=== PATIENT | male | born 1940 | race Caucasian/White ===

== ENCOUNTER → 2018-04-13 | Outpatient (CLI) | payer MEDICARE ==
--- NOTE | 2018-04-13 10:28 | REP ---
CHEST, TWO VIEWS: Two views of the chest performed and compared to a prior study of 09/21/2004. Calcified granulomas are again seen in the lung bases with mild chronic fibrotic change which remains stable. There is no evidence of acute infiltrate. The heart is normal in size. Mediastinal silhouette is unchanged. There are calcified hilar and mediastinal lymph nodes present. There is osteopenia. IMPRESSION: Stable chronic findings without acute infiltrate. Electronically Signed by Christian Varela MD 04/13/2018 05:01 P
== END ==
LOC: M LRY 09:51
PROVIDERS: ATTEND Physician Assistant
DX: M85.88 Other specified disorders of bone density and structure, other site (principal); R06.2 Wheezing
CPT/HCPCS: 71046; 87804; 94640; G0463; J7613; J7644

== ENCOUNTER → 2018-05-17 | Outpatient (CLI) | payer MEDICARE ==
--- NOTE | 2018-05-17 11:12 | REP ---
PA and lateral chest: Comparison is 2018. The lung ovalle appear hyperinflated, as previously. There are no acute infiltrates or pleural effusions. There are stable granulomas in the lung bases, unchanged. Cardiac size is normal. The oscar, mediastinum, skeletal structures are unremarkable. Impression: There are no acute cardiopulmonary findings. There are stable granulomas in the lung bases. Electronically Signed by Christian Delatorre MD 05/17/2018 11:03 A
== END ==
LOC: M LRY 10:29
PROVIDERS: ATTEND Nurse Practitioner Family
DX: J84.10 Pulmonary fibrosis, unspecified (principal); R06.02 Shortness of breath
CPT/HCPCS: 71046; 87804; 93005; 94640; G0463; J2930; J7613; J7644

== ENCOUNTER → 2019-09-27 | Outpatient (REF) | payer MEDICARE | LOC: M LAB REF 11:00 | PROVIDERS: ATTEND Internal Medicine Endocrinology, Diabetes & Metabolism | DX: E04.2 Nontoxic multinodular goiter (principal) ==

== ENCOUNTER 2022-08-06 15:00 | Inpatient (IN) | payer MEDICARE ==
[~2022-08-06] VITALS: Ht 177.8 cm; Wt 92.4 kg
[~2022-08-06 15:00] MED LIST: DILT1CAP46; ECOT81TA5 PO; FINA5TAB2 PO; LOSA100T5; METF500T13; METO50TA7; OMEP40CA5 PO; TAMS1CAP17; TRAD5TAB PO
[2022-08-06] MEDS ORDERED: MED REC IN PROGRESS XX SCH (16:35)
[2022-08-06 16:38] LABS: BASO # 0.1 10^3/uL (0.0-0.2); BASO % 0.4 % (0.0-1.0); EOS # 0.4 10^3/uL (0.0-0.5); EOS % 2.1 % (0.0-3.0); HEMATOCRIT 43.3 % (42.0-52.0); HEMOGLOBIN 13.6 g/dl (13.5-17.5); LYMPH # 1.2 10^3/uL (1.5-5.0); LYMPH % 6.2 % (24.0-44.0); MEAN CORPUSCULAR HEMOGLOBIN 28.8 pg (27.0-33.0); MEAN CORPUSCULAR HGB CONC 31.4 g/dl (32.0-36.5); MEAN CORPUSCULAR VOLUME 91.7 fl (80.0-96.0); MONO % 8.2 % (2.0-8.0); PLATELET COUNT, AUTOMATED 269 10^3/uL (150-450); RED BLOOD COUNT 4.72 10^6/uL (4.30-6.10); WHITE BLOOD COUNT 19.5 10^3/uL (4.0-10.0)
[2022-08-06 16:52] LABS: MONO # 1.6 10^3/uL (0.0-0.8)
[2022-08-06 16:57] LABS: BLOOD UREA NITROGEN 32 MG/DL (9-23); CALCIUM LEVEL 9.2 MG/DL (8.3-10.6); CARBON DIOXIDE LEVEL 28 MMOL/L (20-31); CHLORIDE LEVEL 105 MMOL/L (98-107); CREATININE FOR GFR 1.62 MG/DL (0.70-1.30); GLOMERULAR FILTRATION RATE 43.9 (>35); GLUCOSE, FASTING 96 MG/DL (74-106); POTASSIUM SERUM 4.6 MMOL/L (3.5-5.1); SODIUM LEVEL 141 MMOL/L (136-145)
[2022-08-06] MEDS ORDERED: DILT180C38 PO (17:07)
[2022-08-06] MEDS ORDERED: ALBU8.5H PO (17:24)
[2022-08-06] MEDS ORDERED: AMLO1TAB24 PO (17:24)
[2022-08-06] MEDS ORDERED: VERI5TAB PO (17:24)
[2022-08-06] MEDS ORDERED: AMIO200T49 PO (17:24)
[2022-08-06] MEDS ORDERED: FURO40TA2 PO (17:24)
[2022-08-06] MEDS ORDERED: ELIQ2.5T PO (17:24)
[2022-08-06] MEDS ORDERED: SYMB16INH PO (17:24)
[2022-08-06] MEDS ORDERED: HOME MED LIST COMPLETE! XX SCH (17:30)
[2022-08-06] MEDS ORDERED: ALBUTEROL 90 MCG/ACT 8GM HFA INHALER INH PRN (19:55)
[2022-08-06] MEDS: dilTIAZem **CD** 180MG CAP PO SCH (20:22)
[2022-08-06] MEDS: NS 1,000 ML IV SCH ×2 (20:22→22:01)
[2022-08-06] MEDS: ASPIRIN 81MG ENTERIC TABLET PO SCH (20:23)
[2022-08-06] MEDS: ATORVASTATIN 20 MG TAB PO SCH (20:23)
[2022-08-06 20:45] LABS: ERYTHROCYTE SEDIMENTATION RATE 36 mm/hr (0-20)
[2022-08-06 20:57] LABS: CK-MB VALUE MASS 1.7 NG/ML (<3.6)
[2022-08-06 20:58] LABS: HEMOGLOBIN A1c 5.9 % (4.0-6.0)
[2022-08-06 20:58] LABS: ALBUMIN 3.6 G/DL (3.2-5.2); ALKALINE PHOSPHATASE 98 U/L (46-116); ALT/SGPT 15 U/L (7.0-40); AST/SGOT < 8 U/L (<34); BILIRUBIN,DIRECT 0.1 MG/DL (<0.4); BILIRUBIN,TOTAL 0.5 MG/DL (0.3-1.2); CHOLESTEROL LEVEL 240 MG/DL (<200); CHOLESTEROL RISK RATIO 4.27 (<5); HDL CHOLESTEROL 56.1 MG/DL (>40); LDL CHOLESTEROL 141.7 MG/DL (<100); NON-HDL-C 183.9 MG/DL; TOTAL PROTEIN 6.4 G/DL (5.7-8.2); TRIGLYCERIDES LEVEL 211 MG/DL (<150)
[2022-08-06 21:00] LABS: THYROID STIMULATING HORMONE 0.782 uIU/ML (0.55-4.78)
[2022-08-06] MEDS ORDERED: amLODIPine 5 MG TAB PO SCH (21:00)
[2022-08-06 21:03] LABS: PARTIAL THROMBOPLASTIN TIME 27.9 SECONDS (24.8-34.2)
[2022-08-06 21:06] LABS: INR 0.88; PROTHROMBIN TIME 12.1 SECONDS (12.5-14.5)
[2022-08-06 21:09] LABS: CPK CREATINE PHOSPHOKINASE 76 U/L (46-171); MB/CK RELATIVE INDEX 2.23 (< OR =4)
[2022-08-06 21:15] VITALS: BP 144/79; TEMP 98.1; O2SAT 97
[2022-08-06 21:45] VITALS: BP 144/77; TEMP 98; O2SAT 97
[2022-08-06] MEDS: APIXABAN 2.5 MG TAB (ELIQUIS) PO SCH (22:00)
[2022-08-06 23:36] VITALS: BP 144/74; TEMP 97.4; O2SAT 91
[2022-08-07] VITALS (9 sets, daily range): BP systolic 119–154; BP diastolic 57–83; TEMP 97.1–98; O2SAT 92–97
[2022-08-07] MEDS: SYMBICORT 160/4.5MCG INHALER 6GM INH SCH ×2 (08:14→19:21)
[2022-08-07] MEDS: ASPIRIN 81MG ENTERIC TABLET PO SCH (08:20)
[2022-08-07] MEDS: AMIODARONE 200 MG TAB (PACERONE) PO SCH (08:20)
[2022-08-07] MEDS: APIXABAN 2.5 MG TAB (ELIQUIS) PO SCH ×2 (08:20→21:00)
[2022-08-07] MEDS: FINASTERIDE 5MG TAB PO SCH (08:21)
[2022-08-07] MEDS: OMEPRAZOLE 20MG CAP PO SCH (08:21)
[2022-08-07 08:31] LABS: BASO # 0.1 10^3/uL (0.0-0.2); BASO % 0.6 % (0.0-1.0); EOS # 0.5 10^3/uL (0.0-0.5); EOS % 3.5 % (0.0-3.0); HEMATOCRIT 42.8 % (42.0-52.0); HEMOGLOBIN 13.4 g/dl (13.5-17.5); LYMPH # 1.1 10^3/uL (1.5-5.0); MEAN CORPUSCULAR HEMOGLOBIN 29.2 pg (27.0-33.0); MEAN CORPUSCULAR HGB CONC 31.3 g/dl (32.0-36.5); MEAN CORPUSCULAR VOLUME 93.2 fl (80.0-96.0); MONO # 1.4 10^3/uL (0.0-0.8); MONO % 8.9 % (2.0-8.0); NEUTROPHILS # 12.3 10^3/uL (1.5-8.5); NEUTROPHILS % 79.2 % (36.0-66.0); PLATELET COUNT, AUTOMATED 252 10^3/uL (150-450); RED BLOOD COUNT 4.59 10^6/uL (4.30-6.10); WHITE BLOOD COUNT 15.6 10^3/uL (4.0-10.0)
[2022-08-07] MEDS ORDERED: APIXABAN 2.5 MG TAB (ELIQUIS) PO SCH (09:00)
[2022-08-07 09:01] LABS: CALCIUM LEVEL 8.9 MG/DL (8.3-10.6); CREATININE FOR GFR 1.35 MG/DL (0.70-1.30); GLOMERULAR FILTRATION RATE 54.1 (>35); POTASSIUM SERUM 4.4 MMOL/L (3.5-5.1)
[2022-08-07] MEDS: dilTIAZem **CD** 180MG CAP PO SCH (21:00)
[2022-08-07] MEDS: ATORVASTATIN 20 MG TAB PO SCH (21:00)
[2022-08-08 04:22] VITALS: BP 113/59; TEMP 97.4; O2SAT 95
[2022-08-08] MEDS: OMEPRAZOLE 20MG CAP PO SCH (07:53)
[2022-08-08] MEDS: AMIODARONE 200 MG TAB (PACERONE) PO SCH (07:53)
[2022-08-08] MEDS: APIXABAN 2.5 MG TAB (ELIQUIS) PO SCH (07:53)
[2022-08-08] MEDS: ASPIRIN 81MG ENTERIC TABLET PO SCH (07:53)
[2022-08-08] MEDS: FINASTERIDE 5MG TAB PO SCH (07:53)
[2022-08-08] MEDS: SYMBICORT 160/4.5MCG INHALER 6GM INH SCH (07:56)
[2022-08-08 08:00] VITALS: BP 139/66; TEMP 97.5; O2SAT 97
[2022-08-08] MEDS ORDERED: ASPI81TAEC PO (08:01)
[2022-08-08] MEDS ORDERED: ELIQ2.5T PO (08:01)
[2022-08-08] MEDS ORDERED: ATOR80TA59 PO (08:01)
[2022-08-08] MEDS ORDERED: APIXABAN 5 MG TAB (ELIQUIS) PO SCH (21:00)
== END 2022-08-08 10:48 | disposition home health service (06) | DRG 65 ==
LOC: M ED 15:00 → M ED INP 19:51 → ENRESERV 20:43 → M PCU 21:36
PROVIDERS: ADMIT Internal Medicine; ATTEND Internal Medicine Nephrology
PROC: B246ZZZ Ultrasonography of Right and Left Heart (ICD-10-PCS; principal; 2022-08-07)
DX: I63.512 Cerebral infarction due to unspecified occlusion or stenosis of left middle cerebral artery (principal); G81.91 Hemiplegia, unspecified affecting right dominant side; N17.9 Acute kidney failure, unspecified; I13.0 Hypertensive heart and chronic kidney disease with heart failure and stage 1 through stage 4 chronic kidney disease, or unspecified chronic kidney disease; I50.32 Chronic diastolic (congestive) heart failure; J44.9 Chronic obstructive pulmonary disease, unspecified; K21.9 Gastro-esophageal reflux disease without esophagitis; I48.0 Paroxysmal atrial fibrillation; D72.0 Genetic anomalies of leukocytes; E11.22 Type 2 diabetes mellitus with diabetic chronic kidney disease; F17.200 Nicotine dependence, unspecified, uncomplicated; N18.30 Chronic kidney disease, stage 3 unspecified; D72.829 Elevated white blood cell count, unspecified; E66.9 Obesity, unspecified; H91.93 Unspecified hearing loss, bilateral; Z79.01 Long term (current) use of anticoagulants; Z79.899 Other long term (current) drug therapy; Z88.0 Allergy status to penicillin; Z68.30 Body mass index [BMI] 30.0-30.9, adult

== ENCOUNTER 2022-10-03 12:43 | Inpatient (IN) | payer MEDICARE ==
[~2022-10-03] VITALS: Ht 165.1 cm; Wt 97.4 kg
[~2022-10-03 12:43] MED LIST changes: +ALBU8.5H PO; +AMIO200T49 PO; +AMLO1TAB24 PO; +ASPI81TAEC PO; +ATOR80TA59 PO; +DILT180C38 PO; +ELIQ2.5T PO; +FURO40TA2 PO; +SYMB16INH PO; +VERI5TAB PO
[2022-10-03] MEDS ORDERED: GABA-1171 (13:30)
[2022-10-03] MEDS ORDERED: FURO20TA2 PO (13:30)
[2022-10-03 13:41] LABS: BASO # 0.1 10^3/uL (0.0-0.2); BASO % 0.4 % (0.0-1.0); EOS # 0.4 10^3/uL (0.0-0.5); EOS % 2.2 % (0.0-3.0); HEMATOCRIT 36.5 % (42.0-52.0); HEMOGLOBIN 11.3 g/dl (13.5-17.5); LYMPH # 1.1 10^3/uL (1.5-5.0); MEAN CORPUSCULAR HEMOGLOBIN 29.6 pg (27.0-33.0); MEAN CORPUSCULAR VOLUME 95.5 fl (80.0-96.0); MONO # 1.2 10^3/uL (0.0-0.8); MONO % 7.5 % (2.0-8.0); NEUTROPHILS # 12.8 10^3/uL (1.5-8.5); NEUTROPHILS % 82.3 % (36.0-66.0); PLATELET COUNT, AUTOMATED 187 10^3/uL (150-450); RED BLOOD COUNT 3.82 10^6/uL (4.30-6.10); WHITE BLOOD COUNT 15.6 10^3/uL (4.0-10.0)
[2022-10-03 14:05] LABS: ETHYL ALCOHOL (ETHANOL) < 0.003 % (0.000-0.010)
[2022-10-03 14:06] LABS: ACETAMINOPHEN LEVEL < 2.0 UG/ML (10.0-20.0)
[2022-10-03 14:07] LABS: ALBUMIN 3.1 G/DL (3.2-5.2); ALKALINE PHOSPHATASE 92 U/L (46-116); ALT/SGPT 12 U/L (7.0-40); AST/SGOT < 8 U/L (<34); BILIRUBIN,DIRECT 0.3 MG/DL (<0.4); BILIRUBIN,TOTAL 0.6 MG/DL (0.3-1.2); BLOOD UREA NITROGEN 24 MG/DL (9-23); CALCIUM LEVEL 8.4 MG/DL (8.3-10.6); CARBON DIOXIDE LEVEL 26 MMOL/L (20-31); CHLORIDE LEVEL 109 MMOL/L (98-107); CREATININE FOR GFR 1.54 MG/DL (0.70-1.30); GLOMERULAR FILTRATION RATE 46.5 (>35); GLUCOSE, FASTING 91 MG/DL (74-106); POTASSIUM SERUM 4.5 MMOL/L (3.5-5.1); SALICYLATE LEVEL < 3.0 MG/DL (<30); SODIUM LEVEL 142 MMOL/L (136-145); TOTAL PROTEIN 5.6 G/DL (5.7-8.2)
[2022-10-03 14:26] LABS: RSV AMPLIFICATION NEGATIVE (NEGATIVE)
[2022-10-03] MEDS ORDERED: ACETAMINOPHEN TAB 650MG DOSE (2X325MG) PO PRN (16:45)
[2022-10-03] MEDS ORDERED: B-12100010 PO (17:06)
[2022-10-03] MEDS ORDERED: HYDR-3910 PO (17:06)
[2022-10-03] MEDS ORDERED: GABA-1171 PO (17:06)
[2022-10-03] MEDS ORDERED: ASPI81TA26 PO (17:06)
[2022-10-03] MEDS ORDERED: ELIQ2.5T PO (17:06)
[2022-10-03] MEDS ORDERED: GLUCAGON INJ 1MG VIAL SC PRN (17:10)
[2022-10-03] MEDS ORDERED: DEXTROSE 50% 50ML SYRINGE IV PRN (17:10)
[2022-10-03] MEDS ORDERED: HOME MED LIST COMPLETE! XX SCH (17:10)
[2022-10-03] MEDS ORDERED: GLUCOSE 4GM CHEW TABLET PO PRN (17:10)
[2022-10-03] MEDS ORDERED: ALBUTEROL 90 MCG/ACT 8GM HFA INHALER INH PRN (17:20)
[2022-10-03 18:50] LABS: CK-MB VALUE MASS 1.1 NG/ML (<3.6)
[2022-10-03 18:52] LABS: MB/CK RELATIVE INDEX 1.48 (< OR =4)
[2022-10-03 18:59] LABS: INR 1.05; PROTHROMBIN TIME 13.4 SECONDS (12.5-14.5)
[2022-10-03 19:00] LABS: PARTIAL THROMBOPLASTIN TIME 27.8 SECONDS (24.8-34.2)
[2022-10-03] MEDS: SYMBICORT 160/4.5MCG INHALER 6GM INH SCH (19:51)
[2022-10-03] MEDS ORDERED: dilTIAZem **CD** 180MG CAP PO SCH (21:00)
[2022-10-03] MEDS ORDERED: AMIODARONE 200 MG TAB (PACERONE) PO SCH (21:00)
[2022-10-03] MEDS ORDERED: **hydrALAZINE HCL** 25 MG TAB PO SCH (21:00)
[2022-10-03] MEDS ORDERED: APIXABAN 2.5 MG TAB (ELIQUIS) PO SCH (21:00)
[2022-10-03 21:34] VITALS: BP 175/76; TEMP 98.6; O2SAT 95
[2022-10-03] MEDS: INSULIN LISPRO (NovoLOG) PER UNIT SC SCH (21:51)
[2022-10-03] MEDS: GABAPENTIN 100 MG CAP PO SCH (21:52)
[2022-10-03] MEDS: ATORVASTATIN 20 MG TAB PO SCH (21:52)
[2022-10-03 21:54] VITALS: BP 175/76
[2022-10-03 23:02] VITALS: BP 141/63; TEMP 98.6; O2SAT 93
[2022-10-03 23:40] VITALS: BP 141/70; TEMP 98.2; O2SAT 92
[2022-10-04 04:35] VITALS: BP 108/54; TEMP 99.1; O2SAT 94
[2022-10-04 06:39] LABS: HEMATOCRIT 34.2 % (42.0-52.0); HEMOGLOBIN 10.3 g/dl (13.5-17.5); MEAN CORPUSCULAR HEMOGLOBIN 28.6 pg (27.0-33.0); MEAN CORPUSCULAR HGB CONC 30.1 g/dl (32.0-36.5); PLATELET COUNT, AUTOMATED 202 10^3/uL (150-450); WHITE BLOOD COUNT 12.7 10^3/uL (4.0-10.0)
[2022-10-04 07:12] LABS: ALBUMIN 2.6 G/DL (3.2-5.2); ALKALINE PHOSPHATASE 80 U/L (46-116); ALT/SGPT 10 U/L (7.0-40); AST/SGOT < 8 U/L (<34); BILIRUBIN,TOTAL 0.8 MG/DL (0.3-1.2); BLOOD UREA NITROGEN 20 MG/DL (9-23); CARBON DIOXIDE LEVEL 28 MMOL/L (20-31); CHLORIDE LEVEL 109 MMOL/L (98-107); GLOMERULAR FILTRATION RATE 47.9 (>35); GLUCOSE, FASTING 91 MG/DL (74-106); POTASSIUM SERUM 4.5 MMOL/L (3.5-5.1); SODIUM LEVEL 141 MMOL/L (136-145); TOTAL PROTEIN 4.8 G/DL (5.7-8.2)
[2022-10-04] MEDS: INSULIN LISPRO (NovoLOG) PER UNIT SC SCH ×3 (07:30→17:43)
[2022-10-04] MEDS: SYMBICORT 160/4.5MCG INHALER 6GM INH SCH ×2 (07:37→20:00)
[2022-10-04 08:00] VITALS: BP 142/67; TEMP 97.3; O2SAT 96
[2022-10-04] MEDS: CYANOCOBALAMIN 500 MCG TAB PO SCH (08:19)
[2022-10-04] MEDS: OMEPRAZOLE 20MG CAP PO SCH (08:19)
[2022-10-04] MEDS: ASPIRIN 81MG ENTERIC TABLET PO SCH (08:19)
[2022-10-04] MEDS: FINASTERIDE 5MG TAB PO SCH (08:19)
[2022-10-04] MEDS: GABAPENTIN 100 MG CAP PO SCH ×2 (08:21→21:20)
[2022-10-04] MEDS ORDERED: FUROSEMIDE 20 MG TAB PO SCH (09:00)
[2022-10-04 12:46] VITALS: BP 129/62; TEMP 97.4; O2SAT 96
[2022-10-04 15:32] VITALS: BP 130/62; TEMP 97.4; O2SAT 94
[2022-10-04] MEDS: APIXABAN 2.5 MG TAB (ELIQUIS) PO SCH (21:19)
[2022-10-04] MEDS: ATORVASTATIN 20 MG TAB PO SCH (21:19)
[2022-10-04 21:51] VITALS: BP 137/65; TEMP 97.3; O2SAT 94
[2022-10-05 00:03] VITALS: BP 137/63; TEMP 97.8; O2SAT 93
[2022-10-05 04:11] VITALS: BP 147/67; TEMP 97.2; O2SAT 92
[2022-10-05 06:38] LABS: HEMATOCRIT 33.7 % (42.0-52.0); HEMOGLOBIN 10.3 g/dl (13.5-17.5); MEAN CORPUSCULAR HEMOGLOBIN 29.2 pg (27.0-33.0); MEAN CORPUSCULAR HGB CONC 30.6 g/dl (32.0-36.5); MEAN CORPUSCULAR VOLUME 95.5 fl (80.0-96.0); PLATELET COUNT, AUTOMATED 199 10^3/uL (150-450); RED BLOOD COUNT 3.53 10^6/uL (4.30-6.10); WHITE BLOOD COUNT 11.5 10^3/uL (4.0-10.0)
[2022-10-05 07:02] LABS: ALBUMIN 2.7 G/DL (3.2-5.2); ALKALINE PHOSPHATASE 84 U/L (46-116); ALT/SGPT 11 U/L (7.0-40); AST/SGOT < 8 U/L (<34); BILIRUBIN,TOTAL 0.6 MG/DL (0.3-1.2); BLOOD UREA NITROGEN 21 MG/DL (9-23); CALCIUM LEVEL 8.2 MG/DL (8.3-10.6); CARBON DIOXIDE LEVEL 26 MMOL/L (20-31); CHLORIDE LEVEL 109 MMOL/L (98-107); CREATININE FOR GFR 1.51 MG/DL (0.70-1.30); GLOMERULAR FILTRATION RATE 47.6 (>35); GLUCOSE, FASTING 95 MG/DL (74-106); POTASSIUM SERUM 4.5 MMOL/L (3.5-5.1); SODIUM LEVEL 144 MMOL/L (136-145)
[2022-10-05] MEDS: INSULIN LISPRO (NovoLOG) PER UNIT SC SCH ×3 (07:30→18:25)
[2022-10-05 07:44] VITALS: BP 152/68; TEMP 98.2; O2SAT 91
[2022-10-05] MEDS: SYMBICORT 160/4.5MCG INHALER 6GM INH SCH ×2 (08:45→19:37)
[2022-10-05] MEDS ORDERED: PARoxetine 10MG TABLET PO SCH (09:00)
[2022-10-05] MEDS: APIXABAN 2.5 MG TAB (ELIQUIS) PO SCH (10:02)
[2022-10-05] MEDS: OMEPRAZOLE 20MG CAP PO SCH (10:02)
[2022-10-05] MEDS: ASPIRIN 81MG ENTERIC TABLET PO SCH (10:03)
[2022-10-05] MEDS: FINASTERIDE 5MG TAB PO SCH (10:03)
[2022-10-05] MEDS: CYANOCOBALAMIN 500 MCG TAB PO SCH (10:03)
[2022-10-05] MEDS: GABAPENTIN 100 MG CAP PO SCH ×2 (10:04→20:52)
[2022-10-05 12:45] VITALS: BP 176/99; TEMP 98.5; O2SAT 92
[2022-10-05] MEDS ORDERED: RIVAROXABAN 15MG TAB (XARELTO) PO SCH (18:00)
[2022-10-05 19:54] VITALS: BP 148/71; TEMP 98.4; O2SAT 90
[2022-10-05] MEDS: ATORVASTATIN 20 MG TAB PO SCH (20:52)
[2022-10-06 04:28] VITALS: BP 131/67; TEMP 97.7; O2SAT 91
[2022-10-06 07:27] VITALS: BP 159/79; TEMP 98; O2SAT 90
[2022-10-06] MEDS: SYMBICORT 160/4.5MCG INHALER 6GM INH SCH (07:44)
[2022-10-06] MEDS: INSULIN LISPRO (NovoLOG) PER UNIT SC SCH ×2 (07:58→11:58)
[2022-10-06] MEDS: CYANOCOBALAMIN 500 MCG TAB PO SCH (07:58)
[2022-10-06] MEDS: ASPIRIN 81MG ENTERIC TABLET PO SCH (07:58)
[2022-10-06] MEDS: FINASTERIDE 5MG TAB PO SCH (07:59)
[2022-10-06] MEDS: GABAPENTIN 100 MG CAP PO SCH (07:59)
[2022-10-06] MEDS: OMEPRAZOLE 20MG CAP PO SCH (07:59)
[2022-10-06] MEDS ORDERED: FLUoxetine 20MG CAP PO SCH (09:00)
[2022-10-06] MEDS ORDERED: dilTIAZem **CD** 180MG CAP PO SCH (09:00)
[2022-10-06] MEDS ORDERED: ATOR80TA59 PO (12:19)
[2022-10-06] MEDS ORDERED: FLUO20CA22 PO (12:19)
[2022-10-06] MEDS ORDERED: XARE15TA PO (12:19)
[2022-10-06] MEDS ORDERED: FINA5TAB2 PO (12:19)
[2022-10-07] MEDS ORDERED: FINASTERIDE 5MG TAB PO SCH (21:00)
== END 2022-10-06 14:53 | disposition home or self-care (01) | DRG 65 ==
LOC: EDBD 12:43 → M ED 12:43 → M ED INP 12:44 → M MSPAV 21:34 → M PCU 23:38 → OBSVTOIN 10-04 18:20
PROVIDERS: ADMIT Internal Medicine; ATTEND Internal Medicine Nephrology
PROC: B246ZZZ Ultrasonography of Right and Left Heart (ICD-10-PCS; principal; 2022-10-04)
DX: I63.412 Cerebral infarction due to embolism of left middle cerebral artery (principal); I50.32 Chronic diastolic (congestive) heart failure; I13.0 Hypertensive heart and chronic kidney disease with heart failure and stage 1 through stage 4 chronic kidney disease, or unspecified chronic kidney disease; I69.351 Hemiplegia and hemiparesis following cerebral infarction affecting right dominant side; I48.0 Paroxysmal atrial fibrillation; J44.9 Chronic obstructive pulmonary disease, unspecified; E11.22 Type 2 diabetes mellitus with diabetic chronic kidney disease; K21.9 Gastro-esophageal reflux disease without esophagitis; Z66 Do not resuscitate; N18.30 Chronic kidney disease, stage 3 unspecified; D72.829 Elevated white blood cell count, unspecified; H91.93 Unspecified hearing loss, bilateral; R26.89 Other abnormalities of gait and mobility; R35.0 Frequency of micturition; F17.200 Nicotine dependence, unspecified, uncomplicated; F32.A Depression, unspecified; E66.9 Obesity, unspecified; I69.398 Other sequelae of cerebral infarction; E04.1 Nontoxic single thyroid nodule; Z79.01 Long term (current) use of anticoagulants; Z79.82 Long term (current) use of aspirin; Z79.899 Other long term (current) drug therapy; Z88.0 Allergy status to penicillin; Z68.36 Body mass index [BMI] 36.0-36.9, adult

== ENCOUNTER 2022-12-28 12:32 | Inpatient (IN) | payer MEDICARE ==
[~2022-12-28] VITALS: Ht 180.3 cm; Wt 102.2 kg
[~2022-12-28 12:32] MED LIST changes: +ASPI81TA26 PO; +B-12100010 PO; +FLUO20CA22 PO; +FURO20TA2 PO; +GABA-1171; +GABA-1171 PO; +HYDR-3910 PO; +XARE15TA PO
[2022-12-28 13:47] LABS: BASO # 0.1 10^3/uL (0.0-0.2); BASO % 0.5 % (0.0-1.0); EOS # 0.6 10^3/uL (0.0-0.5); EOS % 4.8 % (0.0-3.0); HEMATOCRIT 33.1 % (42.0-52.0); HEMOGLOBIN 9.6 g/dl (13.5-17.5); LYMPH # 0.6 10^3/uL (1.5-5.0); LYMPH % 4.7 % (24.0-44.0); MEAN CORPUSCULAR HEMOGLOBIN 26.4 pg (27.0-33.0); MEAN CORPUSCULAR VOLUME 90.9 fl (80.0-96.0); MONO % 12.6 % (2.0-8.0); NEUTROPHILS # 10.3 10^3/uL (1.5-8.5); NEUTROPHILS % 76.7 % (36.0-66.0); PLATELET COUNT, AUTOMATED 323 10^3/uL (150-450); RED BLOOD COUNT 3.64 10^6/uL (4.30-6.10); WHITE BLOOD COUNT 13.4 10^3/uL (4.0-10.0)
[2022-12-28 14:02] LABS: INR 1.07; PARTIAL THROMBOPLASTIN TIME 34.4 SECONDS (24.8-34.2); PROTHROMBIN TIME 13.6 SECONDS (12.5-14.5)
[2022-12-28 14:12] LABS: ALBUMIN 2.6 G/DL (3.2-5.2); ALKALINE PHOSPHATASE 82 U/L (46-116); ALT/SGPT 25 U/L (7.0-40); AST/SGOT 29 U/L (<34); BILIRUBIN,DIRECT < 0.1 MG/DL (<0.4); BILIRUBIN,TOTAL 0.3 MG/DL (0.3-1.2); BLOOD UREA NITROGEN 32 MG/DL (9-23); CALCIUM LEVEL 7.9 MG/DL (8.3-10.6); CARBON DIOXIDE LEVEL 30 MMOL/L (20-31); CHLORIDE LEVEL 104 MMOL/L (98-107); CK-MB VALUE MASS 1.4 NG/ML (<3.6); CREATININE FOR GFR 1.98 MG/DL (0.70-1.30); GLOMERULAR FILTRATION RATE 34.7 (>35); GLUCOSE, FASTING 101 MG/DL (74-106); POTASSIUM SERUM 4.8 MMOL/L (3.5-5.1); SODIUM LEVEL 141 MMOL/L (136-145); TOTAL PROTEIN 5.4 G/DL (5.7-8.2)
[2022-12-28 14:16] LABS: THYROID STIMULATING HORMONE 0.331 uIU/ML (0.55-4.78); THYROXINE (T4) 5.6 UG/DL (4.5-10.9)
[2022-12-28 14:17] LABS: CPK CREATINE PHOSPHOKINASE 75 U/L (46-171); MB/CK RELATIVE INDEX 1.86 (< OR =4)
[2022-12-28 14:20] LABS: MONO # 1.7 10^3/uL (0.0-0.8)
[2022-12-28] MEDS ORDERED: FUROSEMIDE 40MG/4ML VIAL IV ONE (14:25)
[2022-12-28 15:15] LABS: CK-MB VALUE MASS 2.4 NG/ML (<3.6)
[2022-12-28 15:16] LABS: MB/CK RELATIVE INDEX 3.24 (< OR =4)
[2022-12-28 16:14] LABS: PROCALCITONIN 0.11 ng/ml
[2022-12-28] MEDS ORDERED: MED REC IN PROGRESS XX SCH (16:50)
[2022-12-28] MEDS ORDERED: FURO40TA2 PO (17:44)
[2022-12-28] MEDS ORDERED: SUCR1TAB56 PO (17:44)
[2022-12-28] MEDS ORDERED: POTA1TAB23 PO (17:44)
[2022-12-28] MEDS ORDERED: FERR325T3 PO (17:52)
[2022-12-28] MEDS ORDERED: ATOR80TA59 PO (17:53)
[2022-12-28] MEDS ORDERED: FINA5TAB2 PO (17:55)
[2022-12-28] MEDS ORDERED: FLUO-96 PO (17:56)
[2022-12-28] MEDS ORDERED: HOME MED LIST COMPLETE! XX SCH (18:00)
[2022-12-28 18:13] LABS: C REACTIVE PROTEIN QUANTITATIV 3.3 MG/DL (<1.0)
[2022-12-28 18:26] LABS: PROCALCITONIN 0.1 ng/ml
[2022-12-28] MEDS ORDERED: ALBUTEROL SULFATE 2.5MG/0.5ML INH NEB SOLN NEB PRN (18:50)
[2022-12-28 20:12] VITALS: BP 117/58; TEMP 96.8; O2SAT 95
[2022-12-28] MEDS: SYMBICORT 160/4.5MCG INHALER 6GM INH SCH (20:52)
[2022-12-28] MEDS ORDERED: FUROSEMIDE 40MG/4ML VIAL IV SCH (21:00)
[2022-12-28] MEDS: FUROSEMIDE 40MG/4ML VIAL IV SCH (21:02)
[2022-12-28] MEDS: POTASSIUM CHLORIDE 10MEQ SR TABLET PO SCH (21:02)
[2022-12-28] MEDS: GABAPENTIN 100 MG CAP PO SCH (21:02)
[2022-12-28 23:54] VITALS: BP 93/55; TEMP 97.9; O2SAT 96
[2022-12-29] MEDS: FUROSEMIDE 40MG/4ML VIAL IV SCH (03:09)
[2022-12-29 03:43] VITALS: BP 113/55; TEMP 97.5; O2SAT 97
[2022-12-29 06:23] LABS: BASO # 0.1 10^3/uL (0.0-0.2); BASO % 0.7 % (0.0-1.0); EOS # 0.7 10^3/uL (0.0-0.5); EOS % 6.5 % (0.0-3.0); HEMATOCRIT 33.1 % (42.0-52.0); HEMOGLOBIN 9.7 g/dl (13.5-17.5); LYMPH # 0.8 10^3/uL (1.5-5.0); LYMPH % 7.6 % (24.0-44.0); MEAN CORPUSCULAR HEMOGLOBIN 26.3 pg (27.0-33.0); MEAN CORPUSCULAR HGB CONC 29.3 g/dl (32.0-36.5); MEAN CORPUSCULAR VOLUME 89.7 fl (80.0-96.0); MONO # 1.2 10^3/uL (0.0-0.8); MONO % 11.8 % (2.0-8.0); NEUTROPHILS # 7.6 10^3/uL (1.5-8.5); NEUTROPHILS % 72.7 % (36.0-66.0); PLATELET COUNT, AUTOMATED 317 10^3/uL (150-450); RED BLOOD COUNT 3.69 10^6/uL (4.30-6.10); WHITE BLOOD COUNT 10.4 10^3/uL (4.0-10.0)
[2022-12-29 06:52] LABS: CALCIUM LEVEL 7.9 MG/DL (8.3-10.6); CREATININE FOR GFR 1.92 MG/DL (0.70-1.30); MAGNESIUM LEVEL 1.9 MG/DL (1.8-2.4); POTASSIUM SERUM 4.3 MMOL/L (3.5-5.1)
[2022-12-29] MEDS: SYMBICORT 160/4.5MCG INHALER 6GM INH SCH ×2 (07:49→19:42)
[2022-12-29 08:16] VITALS: BP 101/56; TEMP 97.6; O2SAT 96
[2022-12-29] MEDS: GABAPENTIN 100 MG CAP PO SCH ×2 (08:42→21:55)
[2022-12-29] MEDS: FLUoxetine 20MG CAP PO SCH (08:42)
[2022-12-29] MEDS: AMIODARONE 200 MG TAB (PACERONE) PO SCH (08:43)
[2022-12-29] MEDS: ATORVASTATIN 20 MG TAB PO SCH (08:43)
[2022-12-29] MEDS: POTASSIUM CHLORIDE 10MEQ SR TABLET PO SCH ×2 (08:43→21:55)
[2022-12-29] MEDS: PANTOPRAZOLE 40MG TAB (PROTONIX) PO SCH (08:43)
[2022-12-29] MEDS ORDERED: FUROSEMIDE 40MG/4ML VIAL IV SCH ×2 (09:00→10:00)
[2022-12-29] MEDS: SENOKOT S TAB PO SCH ×2 (09:00→20:53)
[2022-12-29] MEDS ORDERED: DIGOXIN 0.25 MG TAB PO ONE (12:00)
[2022-12-29] MEDS ORDERED: DIGOXIN 0.25 MG TAB PO SCH (12:00)
[2022-12-29 12:10] VITALS: BP 113/58; TEMP 98; O2SAT 93
[2022-12-29 16:20] VITALS: BP 110/56; TEMP 98.2; O2SAT 96
[2022-12-29 19:54] VITALS: BP 113/55; TEMP 98.9; O2SAT 95
[2022-12-29 23:28] VITALS: BP 115/57; TEMP 98; O2SAT 97
[2022-12-30 03:57] VITALS: BP 111/60; TEMP 98; O2SAT 96
[2022-12-30] MEDS: SYMBICORT 160/4.5MCG INHALER 6GM INH SCH ×2 (07:37→19:46)
[2022-12-30 07:38] LABS: BASO % 0.3 % (0.0-1.0); EOS # 0.8 10^3/uL (0.0-0.5); EOS % 6.7 % (0.0-3.0); HEMATOCRIT 32.4 % (42.0-52.0); HEMOGLOBIN 9.3 g/dl (13.5-17.5); LYMPH # 0.9 10^3/uL (1.5-5.0); LYMPH % 7.7 % (24.0-44.0); MEAN CORPUSCULAR HGB CONC 28.7 g/dl (32.0-36.5); MEAN CORPUSCULAR VOLUME 90.5 fl (80.0-96.0); MONO # 1.3 10^3/uL (0.0-0.8); MONO % 11.1 % (2.0-8.0); NEUTROPHILS # 8.7 10^3/uL (1.5-8.5); NEUTROPHILS % 73.7 % (36.0-66.0); PLATELET COUNT, AUTOMATED 310 10^3/uL (150-450); RED BLOOD COUNT 3.58 10^6/uL (4.30-6.10); WHITE BLOOD COUNT 11.8 10^3/uL (4.0-10.0)
[2022-12-30 07:40] VITALS: BP 120/69; TEMP 97.8; O2SAT 94
[2022-12-30 08:09] LABS: CREATININE FOR GFR 1.81 MG/DL (0.70-1.30); GLOMERULAR FILTRATION RATE 38.5 (>35); MAGNESIUM LEVEL 1.8 MG/DL (1.8-2.4); POTASSIUM SERUM 4.4 MMOL/L (3.5-5.1)
[2022-12-30] MEDS ORDERED: DIGOXIN 0.125 MG TAB PO SCH (09:00)
[2022-12-30] MEDS ORDERED: FUROSEMIDE 40MG/4ML VIAL IV SCH (09:00)
[2022-12-30] MEDS: POTASSIUM CHLORIDE 10MEQ SR TABLET PO SCH ×2 (09:44→20:40)
[2022-12-30] MEDS: GABAPENTIN 100 MG CAP PO SCH ×2 (09:44→20:39)
[2022-12-30] MEDS: PANTOPRAZOLE 40MG TAB (PROTONIX) PO SCH (09:44)
[2022-12-30] MEDS: ATORVASTATIN 20 MG TAB PO SCH (09:44)
[2022-12-30] MEDS: AMIODARONE 200 MG TAB (PACERONE) PO SCH (09:45)
[2022-12-30] MEDS: SENOKOT S TAB PO SCH (09:45)
[2022-12-30] MEDS: FLUoxetine 20MG CAP PO SCH (09:45)
[2022-12-30 11:20] VITALS: BP 113/56; TEMP 97.1; O2SAT 96
[2022-12-30 23:54] VITALS: BP 122/68; TEMP 98.3; O2SAT 96
[2022-12-31 05:35] LABS: BASO # 0.1 10^3/uL (0.0-0.2); BASO % 0.5 % (0.0-1.0); EOS # 0.9 10^3/uL (0.0-0.5); EOS % 7.7 % (0.0-3.0); HEMATOCRIT 34.2 % (42.0-52.0); HEMOGLOBIN 9.7 g/dl (13.5-17.5); LYMPH % 8.3 % (24.0-44.0); MEAN CORPUSCULAR HEMOGLOBIN 25.9 pg (27.0-33.0); MEAN CORPUSCULAR HGB CONC 28.4 g/dl (32.0-36.5); MEAN CORPUSCULAR VOLUME 91.2 fl (80.0-96.0); MONO # 1.3 10^3/uL (0.0-0.8); MONO % 10.7 % (2.0-8.0); NEUTROPHILS # 8.6 10^3/uL (1.5-8.5); NEUTROPHILS % 72.4 % (36.0-66.0); PLATELET COUNT, AUTOMATED 308 10^3/uL (150-450); RED BLOOD COUNT 3.75 10^6/uL (4.30-6.10); WHITE BLOOD COUNT 11.8 10^3/uL (4.0-10.0)
[2022-12-31 05:49] VITALS: BP 119/64; TEMP 98.1; O2SAT 93
[2022-12-31 06:03] LABS: CALCIUM LEVEL 7.9 MG/DL (8.3-10.6); CREATININE FOR GFR 1.56 MG/DL (0.70-1.30); GLOMERULAR FILTRATION RATE 45.7 (>35); MAGNESIUM LEVEL 1.9 MG/DL (1.8-2.4); POTASSIUM SERUM 4.5 MMOL/L (3.5-5.1)
[2022-12-31] MEDS: SYMBICORT 160/4.5MCG INHALER 6GM INH SCH ×2 (07:45→19:28)
[2022-12-31] MEDS: DIGOXIN 0.0625MG PER 1/2TABLET PO SCH (09:00)
[2022-12-31] MEDS: SENOKOT S TAB PO SCH (09:00)
[2022-12-31] MEDS ORDERED: FUROSEMIDE 40MG/4ML VIAL IV SCH (09:00)
[2022-12-31] MEDS: PANTOPRAZOLE 40MG TAB (PROTONIX) PO SCH (09:01)
[2022-12-31] MEDS: GABAPENTIN 100 MG CAP PO SCH ×2 (09:02→21:08)
[2022-12-31] MEDS: POTASSIUM CHLORIDE 10MEQ SR TABLET PO SCH ×2 (09:02→21:09)
[2022-12-31] MEDS: ASPIRIN 81MG ENTERIC TABLET PO SCH (09:02)
[2022-12-31] MEDS: FLUoxetine 20MG CAP PO SCH (09:02)
[2022-12-31] MEDS: ATORVASTATIN 20 MG TAB PO SCH (09:03)
[2022-12-31] MEDS: AMIODARONE 200 MG TAB (PACERONE) PO SCH (09:04)
[2022-12-31 14:00] VITALS: BP 123/84; TEMP 97.7; O2SAT 84
[2022-12-31] MEDS: TORSEMIDE 20 MG TAB PO SCH (16:47)
[2022-12-31 21:06] VITALS: BP 121/69; TEMP 97.9; O2SAT 94
[2023-01-01 06:00] VITALS: BP 111/65; TEMP 97.7; O2SAT 93
[2023-01-01 06:01] LABS: BASO # 0.1 10^3/uL (0.0-0.2); BASO % 0.5 % (0.0-1.0); EOS % 8.4 % (0.0-3.0); HEMATOCRIT 32.6 % (42.0-52.0); HEMOGLOBIN 9.4 g/dl (13.5-17.5); LYMPH % 8.6 % (24.0-44.0); MEAN CORPUSCULAR HEMOGLOBIN 25.8 pg (27.0-33.0); MEAN CORPUSCULAR HGB CONC 28.8 g/dl (32.0-36.5); MEAN CORPUSCULAR VOLUME 89.3 fl (80.0-96.0); MONO # 1.2 10^3/uL (0.0-0.8); MONO % 10.2 % (2.0-8.0); NEUTROPHILS # 8.1 10^3/uL (1.5-8.5); NEUTROPHILS % 71.9 % (36.0-66.0); PLATELET COUNT, AUTOMATED 290 10^3/uL (150-450); RED BLOOD COUNT 3.65 10^6/uL (4.30-6.10); WHITE BLOOD COUNT 11.3 10^3/uL (4.0-10.0)
[2023-01-01 06:31] LABS: CALCIUM LEVEL 7.8 MG/DL (8.3-10.6); CREATININE FOR GFR 1.64 MG/DL (0.70-1.30); GLOMERULAR FILTRATION RATE 43.1 (>35); MAGNESIUM LEVEL 1.7 MG/DL (1.8-2.4); POTASSIUM SERUM 4.5 MMOL/L (3.5-5.1)
[2023-01-01] MEDS: SYMBICORT 160/4.5MCG INHALER 6GM INH SCH ×2 (07:40→19:07)
[2023-01-01] MEDS: SENOKOT S TAB PO SCH (09:00)
[2023-01-01] MEDS: MAG SULF 1GM/100ML (MAG RUN) 1 GM in IV 1 EA IV SCH ×2 (09:01→10:17)
[2023-01-01] MEDS: GABAPENTIN 100 MG CAP PO SCH ×2 (09:02→20:49)
[2023-01-01] MEDS: TORSEMIDE 20 MG TAB PO SCH ×2 (09:02→17:36)
[2023-01-01] MEDS: ATORVASTATIN 20 MG TAB PO SCH (09:02)
[2023-01-01] MEDS: PANTOPRAZOLE 40MG TAB (PROTONIX) PO SCH (09:03)
[2023-01-01] MEDS: AMIODARONE 200 MG TAB (PACERONE) PO SCH (09:03)
[2023-01-01] MEDS: DIGOXIN 0.0625MG PER 1/2TABLET PO SCH (09:03)
[2023-01-01] MEDS: ASPIRIN 81MG ENTERIC TABLET PO SCH (09:03)
[2023-01-01] MEDS: FLUoxetine 20MG CAP PO SCH (09:03)
[2023-01-01] MEDS: POTASSIUM CHLORIDE 10MEQ SR TABLET PO SCH ×2 (09:04→20:49)
[2023-01-01 14:00] VITALS: BP 110/60; TEMP 98.1; O2SAT 91
[2023-01-01 21:28] VITALS: BP 109/57; TEMP 97.9; O2SAT 97
[2023-01-02 05:52] LABS: BASO # 0.1 10^3/uL (0.0-0.2); BASO % 0.6 % (0.0-1.0); EOS # 1.1 10^3/uL (0.0-0.5); EOS % 9.9 % (0.0-3.0); HEMOGLOBIN 9.6 g/dl (13.5-17.5); LYMPH % 8.7 % (24.0-44.0); MEAN CORPUSCULAR HEMOGLOBIN 25.9 pg (27.0-33.0); MEAN CORPUSCULAR HGB CONC 29.1 g/dl (32.0-36.5); MEAN CORPUSCULAR VOLUME 89.2 fl (80.0-96.0); MONO # 1.1 10^3/uL (0.0-0.8); NEUTROPHILS % 70.4 % (36.0-66.0); PLATELET COUNT, AUTOMATED 299 10^3/uL (150-450); WHITE BLOOD COUNT 11.4 10^3/uL (4.0-10.0)
[2023-01-02 06:00] VITALS: BP 122/52; TEMP 98.1; O2SAT 97
[2023-01-02 06:25] LABS: CALCIUM LEVEL 8.1 MG/DL (8.3-10.6); CREATININE FOR GFR 1.73 MG/DL (0.70-1.30); GLOMERULAR FILTRATION RATE 40.6 (>35); MAGNESIUM LEVEL 1.9 MG/DL (1.8-2.4); POTASSIUM SERUM 4.3 MMOL/L (3.5-5.1)
[2023-01-02] MEDS: SYMBICORT 160/4.5MCG INHALER 6GM INH SCH (07:12)
[2023-01-02] MEDS: ATORVASTATIN 20 MG TAB PO SCH (08:40)
[2023-01-02] MEDS: PANTOPRAZOLE 40MG TAB (PROTONIX) PO SCH (08:40)
[2023-01-02] MEDS: TORSEMIDE 20 MG TAB PO SCH (08:41)
[2023-01-02] MEDS: SENOKOT S TAB PO SCH (08:41)
[2023-01-02] MEDS: AMIODARONE 200 MG TAB (PACERONE) PO SCH (08:41)
[2023-01-02] MEDS: POTASSIUM CHLORIDE 10MEQ SR TABLET PO SCH (08:41)
[2023-01-02] MEDS: ASPIRIN 81MG ENTERIC TABLET PO SCH (08:41)
[2023-01-02] MEDS: DIGOXIN 0.0625MG PER 1/2TABLET PO SCH (08:44)
[2023-01-02] MEDS: GABAPENTIN 100 MG CAP PO SCH (08:44)
[2023-01-02] MEDS: FLUoxetine 20MG CAP PO SCH (08:44)
[2023-01-02] MEDS ORDERED: ASPI81TAEC PO (10:00)
[2023-01-02] MEDS ORDERED: SENN-52 PO (10:00)
[2023-01-02] MEDS ORDERED: DIGO0.123 PO (10:00)
[2023-01-02] MEDS ORDERED: TORS20TA2 PO (10:00)
== END 2023-01-02 14:20 | disposition home health service (06) | DRG 291 ==
LOC: M ED 12:32 → M ED INP 17:35 → M PCU 20:04 → M MS5PR 12-30 17:07
PROVIDERS: ADMIT Internal Medicine Nephrology; ATTEND Internal Medicine Nephrology
DX: I13.0 Hypertensive heart and chronic kidney disease with heart failure and stage 1 through stage 4 chronic kidney disease, or unspecified chronic kidney disease (principal); I50.33 Acute on chronic diastolic (congestive) heart failure; N17.9 Acute kidney failure, unspecified; E87.3 Alkalosis; E87.1 Hypo-osmolality and hyponatremia; I48.0 Paroxysmal atrial fibrillation; E11.22 Type 2 diabetes mellitus with diabetic chronic kidney disease; N18.30 Chronic kidney disease, stage 3 unspecified; J44.9 Chronic obstructive pulmonary disease, unspecified; K21.9 Gastro-esophageal reflux disease without esophagitis; E66.9 Obesity, unspecified; H91.93 Unspecified hearing loss, bilateral; Z66 Do not resuscitate; E04.1 Nontoxic single thyroid nodule; F32.A Depression, unspecified; D64.9 Anemia, unspecified; R33.9 Retention of urine, unspecified; E78.5 Hyperlipidemia, unspecified; Z79.899 Other long term (current) drug therapy; Z88.0 Allergy status to penicillin; Z87.891 Personal history of nicotine dependence; Z99.81 Dependence on supplemental oxygen; Z68.32 Body mass index [BMI] 32.0-32.9, adult

== ENCOUNTER 2023-01-15 14:46 | Inpatient (IN) | payer MEDICARE ==
[~2023-01-15] VITALS: Ht 180.3 cm; Wt 98.9 kg
[~2023-01-15 14:46] MED LIST changes: +DIGO0.123 PO; +FERR325T3 PO; +FLUO-96 PO; +POTA1TAB23 PO; +SENN-52 PO; +SUCR1TAB56 PO; +TORS20TA2 PO
[2023-01-15 15:51] LABS: VENOUS BASE EXCESS 10.3 (-2.0-2.0); VENOUS HCO3 38.6 MMOL/L (23.0-27.0); VENOUS PARTIAL PRESSURE CO2 74.8 mmHg (38.0-50.0); VENOUS PARTIAL PRESSURE O2 50.4 mmHg (30.0-50.0); VENOUS PH 7.331 UNITS (7.330-7.430); VENOUS STANDARD HCO3 33.7 MMOL/L; VENOUS TOTAL CO2 40.9 MMOL/L (24.0-28.0)
[2023-01-15 15:54] LABS: ABG HCO3 37.5 MMOL/L (22.0-26.0); ABG PARTIAL PRESSURE O2 64.7 mmHg (75.0-100.0); ABG STANDARD HCO3 34.7 MMOL/L. (22.0-26.0); ABG TOTAL CO2 39.4 MMOL/L (23.0-31.0); ABG pH (ARTERIAL) 7.409 UNITS (7.350-7.450)
[2023-01-15 15:57] LABS: ABG PARTIAL PRESSURE CO2 60.7 mmHg (35.0-45.0)
[2023-01-15 16:04] LABS: BASO # 0.1 10^3/uL (0.0-0.2); BASO % 0.4 % (0.0-1.0); EOS # 0.5 10^3/uL (0.0-0.5); EOS % 2.6 % (0.0-3.0); HEMOGLOBIN 9.9 g/dl (13.5-17.5); LYMPH # 0.6 10^3/uL (1.5-5.0); LYMPH % 3.4 % (24.0-44.0); MEAN CORPUSCULAR HEMOGLOBIN 26.1 pg (27.0-33.0); MEAN CORPUSCULAR HGB CONC 29.1 g/dl (32.0-36.5); MEAN CORPUSCULAR VOLUME 89.5 fl (80.0-96.0); NEUTROPHILS # 14.9 10^3/uL (1.5-8.5); PLATELET COUNT, AUTOMATED 300 10^3/uL (150-450); WHITE BLOOD COUNT 18.2 10^3/uL (4.0-10.0)
[2023-01-15 16:24] LABS: ALBUMIN 2.6 G/DL (3.2-5.2); BILIRUBIN,DIRECT 0.2 MG/DL (<0.4); BILIRUBIN,TOTAL 0.5 MG/DL (0.3-1.2); CALCIUM LEVEL 8.1 MG/DL (8.3-10.6); CREATININE FOR GFR 2.1 MG/DL (0.70-1.30); GLOMERULAR FILTRATION RATE 32.4 (>35); POTASSIUM SERUM 4.8 MMOL/L (3.5-5.1); TOTAL PROTEIN 5.3 G/DL (5.7-8.2)
[2023-01-15 16:25] LABS: INR 1.17; PROTHROMBIN TIME 14.5 SECONDS (12.5-14.5)
[2023-01-15 16:26] LABS: THYROID STIMULATING HORMONE 0.869 uIU/ML (0.55-4.78)
[2023-01-15] MEDS ORDERED: NS 500 ML IV ONE (19:10)
[2023-01-15 19:41] LABS: DIGOXIN LEVEL 1.3 NG/ML (0.8-2.0)
[2023-01-15] MEDS ORDERED: FUROSEMIDE 40MG/4ML VIAL IV ONE (19:45)
[2023-01-15] MEDS ORDERED: HOME MED LIST COMPLETE! XX SCH (19:45)
[2023-01-15 20:30] VITALS: BP 126/58; TEMP 97.8; O2SAT 92
[2023-01-15] MEDS: FORMOTEROL FUMARATE 20 MCG/2 ML INHALATION SOLUTION (PERFOROMIST) INH SCH (20:52)
[2023-01-15] MEDS: BUDESONIDE 0.25 MG/2 ML INHALATION SUSPENSION INH SCH (20:52)
[2023-01-15] MEDS: ALBUTEROL SULFATE 2.5MG/0.5ML INH NEB SOLN NEB SCH (20:52)
[2023-01-15] MEDS: DOCUSATE SODIUM 100MG CAPSULE PO SCH (21:00)
[2023-01-16] VITALS (9 sets, daily range): BP systolic 110–119; BP diastolic 54–69; TEMP 97.7–98.4; O2SAT 91–97
[2023-01-16] MEDS: ALBUTEROL SULFATE 2.5MG/0.5ML INH NEB SOLN NEB SCH ×4 (01:25→20:31)
[2023-01-16 05:53] LABS: ABG BASE EXCESS 10.8 (-2.0-2.0); ABG HCO3 37.1 MMOL/L (22.0-26.0); ABG O2 SATURATION 93.5 % (95.0-99.0); ABG PARTIAL PRESSURE CO2 59.5 mmHg (35.0-45.0); ABG PARTIAL PRESSURE O2 67.4 mmHg (75.0-100.0); ABG STANDARD HCO3 34.4 MMOL/L. (22.0-26.0); ABG pH (ARTERIAL) 7.413 UNITS (7.350-7.450)
[2023-01-16 06:04] LABS: BASO # 0.1 10^3/uL (0.0-0.2); BASO % 0.3 % (0.0-1.0); EOS # 0.6 10^3/uL (0.0-0.5); EOS % 3.9 % (0.0-3.0); HEMATOCRIT 35.6 % (42.0-52.0); HEMOGLOBIN 10.4 g/dl (13.5-17.5); LYMPH % 6.3 % (24.0-44.0); MEAN CORPUSCULAR HEMOGLOBIN 25.9 pg (27.0-33.0); MEAN CORPUSCULAR HGB CONC 29.2 g/dl (32.0-36.5); MEAN CORPUSCULAR VOLUME 88.6 fl (80.0-96.0); MONO % 11.5 % (2.0-8.0); NEUTROPHILS # 12.3 10^3/uL (1.5-8.5); NEUTROPHILS % 77.4 % (36.0-66.0); PLATELET COUNT, AUTOMATED 285 10^3/uL (150-450); RED BLOOD COUNT 4.02 10^6/uL (4.30-6.10); WHITE BLOOD COUNT 15.9 10^3/uL (4.0-10.0)
[2023-01-16 06:36] LABS: BLOOD UREA NITROGEN 26 MG/DL (9-23); CALCIUM LEVEL 8.8 MG/DL (8.3-10.6); CARBON DIOXIDE LEVEL > 40.0 MMOL/L (20-31); CHLORIDE LEVEL 98 MMOL/L (98-107); GLOMERULAR FILTRATION RATE 34.3 (>35); GLUCOSE, FASTING 84 MG/DL (74-106); POTASSIUM SERUM 4.7 MMOL/L (3.5-5.1); SODIUM LEVEL 145 MMOL/L (136-145)
[2023-01-16 07:09] LABS: MONO # 1.8 10^3/uL (0.0-0.8)
[2023-01-16] MEDS: FORMOTEROL FUMARATE 20 MCG/2 ML INHALATION SOLUTION (PERFOROMIST) INH SCH ×2 (08:06→20:31)
[2023-01-16] MEDS: BUDESONIDE 0.25 MG/2 ML INHALATION SUSPENSION INH SCH ×2 (08:06→20:31)
[2023-01-16] MEDS: FINASTERIDE 5MG TAB PO SCH (09:40)
[2023-01-16] MEDS: AMIODARONE 200 MG TAB (PACERONE) PO SCH (09:40)
[2023-01-16] MEDS: ATORVASTATIN 20 MG TAB PO SCH (09:40)
[2023-01-16] MEDS: DOCUSATE SODIUM 100MG CAPSULE PO SCH ×2 (09:40→21:00)
[2023-01-16] MEDS: PANTOPRAZOLE 40MG TAB (PROTONIX) PO SCH (09:40)
[2023-01-16] MEDS: ASPIRIN 81MG ENTERIC TABLET PO SCH (09:40)
[2023-01-16] MEDS: DIGOXIN 0.125 MG TAB PO SCH (09:40)
[2023-01-16] MEDS: FLUoxetine 20MG CAP PO SCH (09:40)
[2023-01-16 20:15] LABS: PH BODY FLUID 7.594 UNITS (NOT ESTABLISHED); SOURCE, BODY FLUID pH PLEURAL
[2023-01-16 20:23] LABS: PLEURAL FL COLOR YELLOW (COLORLESS); SOURCE, BODY FLUID PLEURAL
[2023-01-16 20:24] LABS: APPEARANCE, BODY FLUID HAZY (CLEAR)
[2023-01-16 20:29] LABS: SOURCE, BODY FLUID ALBUMIN PLEURAL
[2023-01-16 20:34] LABS: SOURCE, BODY FLUID GLUCOSE PLEURAL; SOURCE, BODY FLUID TRIG PLEURAL; TRIGLYCERIDE, BODY FLUID 28 MG/DL (NOT ESTABLISHED)
[2023-01-16 20:35] LABS: LDH, BODY FLUID 130 U/L (NOT ESTABLISHED); SOURCE, BODY FLUID LDH PLEURAL
[2023-01-16 20:36] LABS: AMYLASE, BODY FLUID 47 U/L (NOT ESTABLISHED); CHOLESTEROL, BODY FLUID 52 MG/DL (NOT ESTABLISHED); SOURCE, BODY FLUID AMYLASE PLEURAL; SOURCE, BODY FLUID CHOL PLEURAL; SOURCE, BODY FLUID TOT PROTEIN PLEURAL; TOTAL PROTEIN, BODY FLUID 2.9 G/DL (NOT ESTABLISHED)
[2023-01-17] VITALS (21 sets, daily range): BP systolic 110–132; BP diastolic 56–69; TEMP 97.7–98.9; O2SAT 85–99
[2023-01-17] MEDS: CEFTAROLINE FOSAMIL 400 MG in D5W MINI-BAG PLUS 50 ML IV SCH ×2 (00:13→13:23)
[2023-01-17] MEDS: ALBUTEROL SULFATE 2.5MG/0.5ML INH NEB SOLN NEB SCH ×4 (01:26→19:31)
[2023-01-17 06:02] LABS: ABG BASE EXCESS 12.4 (-2.0-2.0); ABG HCO3 37.8 MMOL/L (22.0-26.0); ABG O2 SATURATION 95.9 % (95.0-99.0); ABG PARTIAL PRESSURE CO2 53.7 mmHg (35.0-45.0); ABG PARTIAL PRESSURE O2 79.1 mmHg (75.0-100.0); ABG STANDARD HCO3 36.1 MMOL/L. (22.0-26.0); ABG TOTAL CO2 39.4 MMOL/L (23.0-31.0); ABG pH (ARTERIAL) 7.465 UNITS (7.350-7.450)
[2023-01-17 06:46] LABS: BASO # 0.1 10^3/uL (0.0-0.2); BASO % 0.3 % (0.0-1.0); EOS # 0.4 10^3/uL (0.0-0.5); EOS % 2.7 % (0.0-3.0); HEMATOCRIT 31.3 % (42.0-52.0); HEMOGLOBIN 9.1 g/dl (13.5-17.5); LYMPH # 0.8 10^3/uL (1.5-5.0); LYMPH % 5.2 % (24.0-44.0); MEAN CORPUSCULAR HEMOGLOBIN 25.1 pg (27.0-33.0); MEAN CORPUSCULAR HGB CONC 29.1 g/dl (32.0-36.5); MEAN CORPUSCULAR VOLUME 86.5 fl (80.0-96.0); MONO % 10.9 % (2.0-8.0); NEUTROPHILS # 12.6 10^3/uL (1.5-8.5); NEUTROPHILS % 80.5 % (36.0-66.0); PLATELET COUNT, AUTOMATED 286 10^3/uL (150-450); RED BLOOD COUNT 3.62 10^6/uL (4.30-6.10); WHITE BLOOD COUNT 15.7 10^3/uL (4.0-10.0)
[2023-01-17] MEDS: FORMOTEROL FUMARATE 20 MCG/2 ML INHALATION SOLUTION (PERFOROMIST) INH SCH ×2 (07:03→19:31)
[2023-01-17] MEDS: BUDESONIDE 0.25 MG/2 ML INHALATION SUSPENSION INH SCH ×2 (07:03→19:31)
[2023-01-17 07:05] LABS: C REACTIVE PROTEIN QUANTITATIV 15.6 MG/DL (<1.0)
[2023-01-17 07:06] LABS: CALCIUM LEVEL 8.6 MG/DL (8.3-10.6); CREATININE FOR GFR 1.92 MG/DL (0.70-1.30); POTASSIUM SERUM 3.8 MMOL/L (3.5-5.1)
[2023-01-17 07:18] LABS: PROCALCITONIN 0.2 ng/ml
[2023-01-17 07:22] LABS: MONO # 1.7 10^3/uL (0.0-0.8)
[2023-01-17 07:23] LABS: ANISOCYTOSIS 1+; HYPOCHROMASIA 2+; PLATELET ESTIMATE NORMAL (NORMAL)
[2023-01-17] MEDS ORDERED: metOLazone 5 MG TAB PO ONE (08:00)
[2023-01-17] MEDS: FLUoxetine 20MG CAP PO SCH (08:38)
[2023-01-17] MEDS: PANTOPRAZOLE 40MG TAB (PROTONIX) PO SCH (08:38)
[2023-01-17] MEDS: FUROSEMIDE 40MG/4ML VIAL IV SCH ×2 (08:38→17:06)
[2023-01-17] MEDS: AMIODARONE 200 MG TAB (PACERONE) PO SCH (08:39)
[2023-01-17] MEDS: DOCUSATE SODIUM 100MG CAPSULE PO SCH (08:39)
[2023-01-17] MEDS: FINASTERIDE 5MG TAB PO SCH (08:39)
[2023-01-17] MEDS: ASPIRIN 81MG ENTERIC TABLET PO SCH (08:39)
[2023-01-17] MEDS: ATORVASTATIN 20 MG TAB PO SCH (08:39)
[2023-01-17] MEDS: DIGOXIN 0.125 MG TAB PO SCH (08:40)
[2023-01-17] MEDS: POTASSIUM CHLORIDE 10MEQ SR TABLET PO SCH (17:06)
[2023-01-18] VITALS: O2SAT 96
[2023-01-18] MEDS: CEFTAROLINE FOSAMIL 400 MG in D5W MINI-BAG PLUS 50 ML IV SCH ×3 (00:58→11:50)
[2023-01-18] MEDS: ALBUTEROL SULFATE 2.5MG/0.5ML INH NEB SOLN NEB SCH ×2 (01:26→08:04)
[2023-01-18 03:51] VITALS: BP 116/60; TEMP 97.8; O2SAT 97
[2023-01-18 06:26] LABS: ABG O2 SATURATION 97.3 % (95.0-99.0); ABG PARTIAL PRESSURE CO2 57.7 mmHg (35.0-45.0); ABG PARTIAL PRESSURE O2 90.6 mmHg (75.0-100.0); ABG STANDARD HCO3 35.7 MMOL/L. (22.0-26.0); ABG TOTAL CO2 39.8 MMOL/L (23.0-31.0); ABG pH (ARTERIAL) 7.437 UNITS (7.350-7.450)
[2023-01-18 07:07] LABS: BASO # 0.1 10^3/uL (0.0-0.2); BASO % 0.3 % (0.0-1.0); EOS # 0.8 10^3/uL (0.0-0.5); EOS % 5.4 % (0.0-3.0); HEMATOCRIT 32.1 % (42.0-52.0); HEMOGLOBIN 9.5 g/dl (13.5-17.5); LYMPH # 0.8 10^3/uL (1.5-5.0); LYMPH % 5.3 % (24.0-44.0); MEAN CORPUSCULAR HEMOGLOBIN 25.5 pg (27.0-33.0); MEAN CORPUSCULAR HGB CONC 29.6 g/dl (32.0-36.5); MEAN CORPUSCULAR VOLUME 86.1 fl (80.0-96.0); MONO % 11.3 % (2.0-8.0); NEUTROPHILS # 11.2 10^3/uL (1.5-8.5); NEUTROPHILS % 77.1 % (36.0-66.0); PLATELET COUNT, AUTOMATED 295 10^3/uL (150-450); RED BLOOD COUNT 3.73 10^6/uL (4.30-6.10); WHITE BLOOD COUNT 14.5 10^3/uL (4.0-10.0)
[2023-01-18 07:33] LABS: MONO # 1.6 10^3/uL (0.0-0.8)
[2023-01-18 07:42] LABS: CALCIUM LEVEL 8.7 MG/DL (8.3-10.6); CREATININE FOR GFR 1.87 MG/DL (0.70-1.30); GLOMERULAR FILTRATION RATE 37.1 (>35); POTASSIUM SERUM 3.9 MMOL/L (3.5-5.1)
[2023-01-18] MEDS: BUDESONIDE 0.25 MG/2 ML INHALATION SUSPENSION INH SCH (08:04)
[2023-01-18] MEDS: FORMOTEROL FUMARATE 20 MCG/2 ML INHALATION SOLUTION (PERFOROMIST) INH SCH (08:04)
[2023-01-18 08:59] VITALS: BP 118/56; TEMP 97.5; O2SAT 96
[2023-01-18] MEDS: ATORVASTATIN 20 MG TAB PO SCH (09:17)
[2023-01-18] MEDS: ASPIRIN 81MG ENTERIC TABLET PO SCH (09:17)
[2023-01-18] MEDS: FLUoxetine 20MG CAP PO SCH (09:17)
[2023-01-18] MEDS: PANTOPRAZOLE 40MG TAB (PROTONIX) PO SCH (09:17)
[2023-01-18] MEDS: POTASSIUM CHLORIDE 10MEQ SR TABLET PO SCH (09:22)
[2023-01-18] MEDS: FUROSEMIDE 40MG/4ML VIAL IV SCH (09:22)
[2023-01-18] MEDS: FINASTERIDE 5MG TAB PO SCH (09:22)
[2023-01-18] MEDS: DIGOXIN 0.125 MG TAB PO SCH (10:16)
[2023-01-18] MEDS: AMIODARONE 200 MG TAB (PACERONE) PO SCH (10:17)
[2023-01-18] MEDS ORDERED: METO5TA PO (12:13)
[2023-01-18] MEDS ORDERED: SPIR-10 PO (12:13)
[2023-01-18] MEDS ORDERED: DIGO0.123 PO (12:13)
[2023-01-18] MEDS ORDERED: IPRA0.00 INH (12:19)
[2023-01-18 12:30] VITALS: BP 126/68; TEMP 97.9; O2SAT 94
== END 2023-01-18 13:48 | disposition home health service (06) | DRG 682 ==
LOC: M ED 14:46 → EDBD 14:46 → M ED INP 18:23 → OBSVTOIN 19:17 → M PCU 20:24
PROVIDERS: ADMIT Internal Medicine Nephrology; ATTEND Internal Medicine Nephrology
PROC: 0W9B3ZZ Drainage of Left Pleural Cavity, Percutaneous Approach (ICD-10-PCS; principal; 2023-01-16)
DX: N17.9 Acute kidney failure, unspecified (principal); G93.41 Metabolic encephalopathy; I50.33 Acute on chronic diastolic (congestive) heart failure; J96.21 Acute and chronic respiratory failure with hypoxia; J96.22 Acute and chronic respiratory failure with hypercapnia; J93.11 Primary spontaneous pneumothorax; J98.11 Atelectasis; J90 Pleural effusion, not elsewhere classified; E87.4 Mixed disorder of acid-base balance; I13.0 Hypertensive heart and chronic kidney disease with heart failure and stage 1 through stage 4 chronic kidney disease, or unspecified chronic kidney disease; J44.1 Chronic obstructive pulmonary disease with (acute) exacerbation; F05 Delirium due to known physiological condition; N18.30 Chronic kidney disease, stage 3 unspecified; I48.0 Paroxysmal atrial fibrillation; B34.0 Adenovirus infection, unspecified; Z66 Do not resuscitate; R53.81 Other malaise; G25.3 Myoclonus; E78.5 Hyperlipidemia, unspecified; E11.22 Type 2 diabetes mellitus with diabetic chronic kidney disease; J98.8 Other specified respiratory disorders; D72.829 Elevated white blood cell count, unspecified; K21.9 Gastro-esophageal reflux disease without esophagitis; F01.50 Vascular dementia, unspecified severity, without behavioral disturbance, psychotic disturbance, mood disturbance, and anxiety; E66.9 Obesity, unspecified; H91.93 Unspecified hearing loss, bilateral; E04.1 Nontoxic single thyroid nodule; R33.9 Retention of urine, unspecified; D64.9 Anemia, unspecified; Z86.73 Personal history of transient ischemic attack (TIA), and cerebral infarction without residual deficits; Z99.81 Dependence on supplemental oxygen; Z79.82 Long term (current) use of aspirin; Z79.899 Other long term (current) drug therapy; Z88.0 Allergy status to penicillin; Z87.891 Personal history of nicotine dependence; Z68.30 Body mass index [BMI] 30.0-30.9, adult

== ENCOUNTER 2023-04-13 15:04 | Inpatient (IN) | payer MEDICARE ==
[~2023-04-13] VITALS: Ht 180.3 cm; Wt 79.0 kg
[~2023-04-13 15:04] MED LIST changes: -HYDR-3910 PO; +HYDR25TA87 PO; +IPRA0.00 INH; +METO5TA PO; +SPIR-10 PO
[2023-04-13 16:16] LABS: BASO # 0.1 10^3/uL (0.0-0.2); BASO % 0.2 % (0.0-1.0); EOS # 0.1 10^3/uL (0.0-0.5); EOS % 0.2 % (0.0-3.0); HEMATOCRIT 42.7 % (42.0-52.0); HEMOGLOBIN 14.2 g/dl (13.5-17.5); LYMPH # 0.4 10^3/uL (1.5-5.0); LYMPH % 1.9 % (24.0-44.0); MEAN CORPUSCULAR HEMOGLOBIN 26.2 pg (27.0-33.0); MEAN CORPUSCULAR HGB CONC 33.3 g/dl (32.0-36.5); MEAN CORPUSCULAR VOLUME 78.9 fl (80.0-96.0); MONO % 8.7 % (2.0-8.0); NEUTROPHILS # 19.5 10^3/uL (1.5-8.5); NEUTROPHILS % 86.6 % (36.0-66.0); PLATELET COUNT, AUTOMATED 188 10^3/uL (150-450); RED BLOOD COUNT 5.41 10^6/uL (4.30-6.10); WHITE BLOOD COUNT 22.5 10^3/uL (4.0-10.0)
[2023-04-13 16:38] LABS: CALCIUM LEVEL 8.1 MG/DL (8.3-10.6); CREATININE FOR GFR 3.85 MG/DL (0.70-1.30); GLOMERULAR FILTRATION RATE 16.1 (>35); POTASSIUM SERUM 5.6 MMOL/L (3.5-5.1)
[2023-04-13 16:39] LABS: ALBUMIN 2.6 G/DL (3.2-5.2); BILIRUBIN,DIRECT 0.9 MG/DL (<0.4); BILIRUBIN,TOTAL 1.3 MG/DL (0.3-1.2); CK-MB VALUE MASS 2.4 NG/ML (<3.6); DIGOXIN LEVEL 1.6 NG/ML (0.8-2.0); TOTAL PROTEIN 5.3 G/DL (5.7-8.2)
[2023-04-13 16:41] LABS: THYROID STIMULATING HORMONE 0.113 uIU/ML (0.55-4.78)
[2023-04-13 16:42] LABS: FREE T4 1.89 NG/DL (0.89-1.76)
[2023-04-13 16:43] LABS: MB/CK RELATIVE INDEX 5.71 (< OR =4)
[2023-04-13] MEDS ORDERED: NS 1,000 ML IV SCH (16:55)
[2023-04-13] MEDS: DEXTROSE 50% 50ML SYRINGE IV STA (17:51)
[2023-04-13] MEDS: HumuLIN R (REGULAR) INSULIN (NovoLIN R) **100U/ML** PER UNIT IV ONE (17:52)
[2023-04-13] MEDS: CEFEPIME HCL 2 GM in D5W MINI-BAG PLUS 50 ML IV ONE (17:52)
[2023-04-13] MEDS: CALCIUM GLUCONATE 1,000 MG in D5W MINI-BAG PLUS 100 ML IV ONE ×2 (17:53→20:32)
[2023-04-13] MEDS ORDERED: CARB10TA6 PO (18:44)
[2023-04-13] MEDS ORDERED: DIGO0.123 PO (18:44)
[2023-04-13] MEDS ORDERED: ACET-897 PO (18:44)
[2023-04-13] MEDS ORDERED: SENN-134 PO (18:44)
[2023-04-13] MEDS ORDERED: DOXY100T PO (18:44)
[2023-04-13] MEDS ORDERED: TORS20TA2 PO (18:44)
[2023-04-13] MEDS ORDERED: ASPI81CH33 PO (18:44)
[2023-04-13] MEDS ORDERED: IPRA0.00 NEB (18:59)
[2023-04-13] MEDS ORDERED: SPIR-10 PO (19:05)
[2023-04-13] MEDS ORDERED: HOME MED LIST COMPLETE! XX SCH (19:10)
[2023-04-13] MEDS ORDERED: IPRATROPIUM 0.5MG/ALBUTEROL 2.5MG INH SOL UD 3ML (DUONEB) NEB PRN (19:20)
[2023-04-13] MEDS ORDERED: DEXTROSE 50% 50ML SYRINGE IV PRN (19:20)
[2023-04-13] MEDS ORDERED: GLUCOSE 4GM CHEW TABLET PO PRN (19:20)
[2023-04-13] MEDS ORDERED: GLUCAGON INJ 1MG VIAL SC PRN (19:20)
[2023-04-13] MEDS: NS 1,000 ML IV SCH (20:32)
[2023-04-13] MEDS: INSULIN LISPRO (NovoLOG) PER UNIT SC SCH (21:00)
[2023-04-13 21:10] VITALS: BP 101/63; TEMP 95.8; O2SAT 97
[2023-04-13 21:12] VITALS: BP 107/60; TEMP 96.8
[2023-04-13] MEDS: SYMBICORT 160/4.5MCG INHALER 6GM INH SCH (22:00)
[2023-04-13] MEDS: PATIROMER SORBITEX CALCIUM 8.4 GM POWDER PACKET (VELTASSA) PO ONE (23:06)
[2023-04-13 23:10] LABS: ERYTHROCYTE SEDIMENTATION RATE 14 mm/hr (0-20)
[2023-04-13 23:46] VITALS: BP 115/69; TEMP 95.1; O2SAT 96
[2023-04-14] VITALS (7 sets, daily range): BP systolic 97–130; BP diastolic 56–93; TEMP 96.2–97.3; O2SAT 94–97
[2023-04-14 00:08] LABS: C REACTIVE PROTEIN QUANTITATIV 10.8 MG/DL (<1.0); CK-MB VALUE MASS 2.2 NG/ML (<3.6)
[2023-04-14 00:16] LABS: PROCALCITONIN 0.6 ng/ml
[2023-04-14 00:18] LABS: FREE T3 2.4 PG/ML (2.3-4.2)
[2023-04-14] MEDS: DOXYCYCLINE HYCLATE 100 MG in D5W MINI-BAG PLUS 100 ML IV SCH (00:39)
[2023-04-14 00:49] LABS: MB/CK RELATIVE INDEX 4.78 (< OR =4)
[2023-04-14] MEDS: ACETAMINOPHEN TAB 650MG DOSE (2X325MG) PO ONE (03:36)
[2023-04-14] MEDS: cefTRIAXone SOD 2 GM in D5W MINI-BAG PLUS 50 ML IV SCH (05:23)
[2023-04-14 05:54] LABS: BASO % 0.1 % (0.0-1.0); EOS # 0.1 10^3/uL (0.0-0.5); EOS % 0.4 % (0.0-3.0); HEMATOCRIT 37.5 % (42.0-52.0); HEMOGLOBIN 12.3 g/dl (13.5-17.5); LYMPH # 0.6 10^3/uL (1.5-5.0); LYMPH % 2.7 % (24.0-44.0); MEAN CORPUSCULAR HEMOGLOBIN 26.1 pg (27.0-33.0); MEAN CORPUSCULAR HGB CONC 32.8 g/dl (32.0-36.5); MEAN CORPUSCULAR VOLUME 79.4 fl (80.0-96.0); MONO # 2.1 10^3/uL (0.0-0.8); MONO % 8.7 % (2.0-8.0); NEUTROPHILS # 20.2 10^3/uL (1.5-8.5); NEUTROPHILS % 85.6 % (36.0-66.0); PLATELET COUNT, AUTOMATED 176 10^3/uL (150-450); RED BLOOD COUNT 4.72 10^6/uL (4.30-6.10); WHITE BLOOD COUNT 23.7 10^3/uL (4.0-10.0)
[2023-04-14 06:29] LABS: CALCIUM LEVEL 7.9 MG/DL (8.3-10.6); CREATININE FOR GFR 3.61 MG/DL (0.70-1.30); FREE THYROXINE INDEX 5.5 % (1.4-3.8); GLOMERULAR FILTRATION RATE 17.4 (>35); POTASSIUM SERUM 4.6 MMOL/L (3.5-5.1); T UPTAKE 74.4 % (22.5-37.0); THYROID STIMULATING HORMONE 0.093 uIU/ML (0.55-4.78); THYROXINE (T4) 7.4 UG/DL (4.5-10.9)
[2023-04-14] MEDS: INSULIN LISPRO (NovoLOG) PER UNIT SC SCH (08:45)
[2023-04-14] MEDS: NS 1,000 ML IV SCH (08:57)
[2023-04-14] MEDS: ASPIRIN 81MG CHEW TABLET PO SCH (09:17)
[2023-04-14] MEDS: FINASTERIDE 5MG TAB PO SCH (09:17)
[2023-04-14] MEDS: ATORVASTATIN 20 MG TAB PO SCH (09:17)
[2023-04-14] MEDS: SENOKOT S TAB PO SCH (09:17)
[2023-04-14] MEDS: FERROUS SULFATE 325MG TAB PO SCH (09:17)
[2023-04-14] MEDS: AMIODARONE 200 MG TAB (PACERONE) PO SCH (09:17)
[2023-04-14] MEDS: SINEMET 10-100 MG TAB PO SCH (09:18)
[2023-04-14] MEDS: ACETAMINOPHEN TAB 650MG DOSE (2X325MG) PO PRN (09:28)
[2023-04-14 12:58] LABS: FREE T3 2.2 PG/ML (2.3-4.2)
[2023-04-14 12:59] LABS: FREE T4 1.46 NG/DL (0.89-1.76)
[2023-04-14 13:04] LABS: BILIRUBIN,DIRECT 0.4 MG/DL (<0.4); BILIRUBIN,TOTAL 0.6 MG/DL (0.3-1.2); TOTAL PROTEIN 4.4 G/DL (5.7-8.2)
[2023-04-14] MEDS: SODIUM BICARBONATE 75 MEQ in NS 0.45% 1,000 ML IV SCH (15:41)
[2023-04-14] MEDS: DOXYCYCLINE HYCLATE 100MG TABLET PO SCH (20:13)
[2023-04-14] MEDS: CARBAMIDE PEROXIDE 6.5% OTIC SOLN 15ML AU SCH (20:50)
[2023-04-15 04:05] VITALS: BP 111/59; TEMP 97.1; O2SAT 92
[2023-04-15 05:49] LABS: BASO # 0.1 10^3/uL (0.0-0.2); BASO % 0.4 % (0.0-1.0); EOS # 0.2 10^3/uL (0.0-0.5); HEMATOCRIT 36.9 % (42.0-52.0); HEMOGLOBIN 11.8 g/dl (13.5-17.5); LYMPH # 0.7 10^3/uL (1.5-5.0); LYMPH % 3.6 % (24.0-44.0); MEAN CORPUSCULAR HEMOGLOBIN 25.7 pg (27.0-33.0); MEAN CORPUSCULAR VOLUME 80.2 fl (80.0-96.0); MONO # 1.8 10^3/uL (0.0-0.8); NEUTROPHILS # 16.2 10^3/uL (1.5-8.5); NEUTROPHILS % 82.9 % (36.0-66.0); PLATELET COUNT, AUTOMATED 177 10^3/uL (150-450); WHITE BLOOD COUNT 19.6 10^3/uL (4.0-10.0)
[2023-04-15 06:03] LABS: CALCIUM LEVEL 7.7 MG/DL (8.3-10.6); CREATININE FOR GFR 3.04 MG/DL (0.70-1.30); GLOMERULAR FILTRATION RATE 21.2 (>35); PERCENT SATURATION 24.6 % (19.7-50.0); POTASSIUM SERUM 4.3 MMOL/L (3.5-5.1)
[2023-04-15 06:05] LABS: FERRITIN 569.9 NG/ML (10.5-307.3)
[2023-04-15 08:00] VITALS: BP 98/58; TEMP 96.8; O2SAT 95
[2023-04-15 13:10] VITALS: BP 92/49; TEMP 97.2; O2SAT 90
[2023-04-15 16:08] LABS: ANTINUCLEAR ANTIBODIES DIRECT Negative (Negative)
[2023-04-15] MEDS: MIDODRINE 5 MG TAB PO SCH (17:20)
[2023-04-15 21:00] VITALS: BP 126/65; TEMP 97.5; O2SAT 95
[2023-04-15] MEDS: NORCO, ANEXSIA 5/325MG TABLET (HYDROcodone/ACETAMINOPHEN) PO PRN (22:07)
[2023-04-16 05:00] VITALS: TEMP 97.7; O2SAT 94
[2023-04-16 14:00] VITALS: BP 130/75; TEMP 97.5; O2SAT 90
[2023-04-16 20:30] VITALS: BP 144/72; TEMP 97.5; O2SAT 91
[2023-04-17] VITALS (7 sets, daily range): BP systolic 105–144; BP diastolic 49–68; TEMP 97.4–100.6; O2SAT 91–97
[2023-04-17 10:05] LABS: BASO # 0.1 10^3/uL (0.0-0.2); BASO % 0.3 % (0.0-1.0); EOS # 0.3 10^3/uL (0.0-0.5); EOS % 1.4 % (0.0-3.0); HEMOGLOBIN 12.1 g/dl (13.5-17.5); LYMPH # 0.8 10^3/uL (1.5-5.0); LYMPH % 3.9 % (24.0-44.0); MEAN CORPUSCULAR HEMOGLOBIN 26.2 pg (27.0-33.0); MEAN CORPUSCULAR HGB CONC 32.7 g/dl (32.0-36.5); MEAN CORPUSCULAR VOLUME 80.3 fl (80.0-96.0); MONO % 10.4 % (2.0-8.0); NEUTROPHILS # 16.2 10^3/uL (1.5-8.5); NEUTROPHILS % 82.2 % (36.0-66.0); PLATELET COUNT, AUTOMATED 183 10^3/uL (150-450); RED BLOOD COUNT 4.61 10^6/uL (4.30-6.10); WHITE BLOOD COUNT 19.6 10^3/uL (4.0-10.0)
[2023-04-17 10:23] LABS: CALCIUM LEVEL 7.4 MG/DL (8.3-10.6); CREATININE FOR GFR 2.31 MG/DL (0.70-1.30); GLOMERULAR FILTRATION RATE 29.1 (>35); POTASSIUM SERUM 3.6 MMOL/L (3.5-5.1)
[2023-04-17] MEDS: LevoFLOXacin 750 MG TABLET PO SCH (12:08)
[2023-04-17] MEDS: POTASSIUM CHLORIDE 10MEQ SR TABLET PO ONE (16:53)
[2023-04-18] VITALS (8 sets, daily range): BP systolic 122–153; BP diastolic 60–72; TEMP 97.7–98.2; O2SAT 85–94
[2023-04-18 06:05] LABS: BASO # 0.1 10^3/uL (0.0-0.2); BASO % 0.3 % (0.0-1.0); EOS # 0.3 10^3/uL (0.0-0.5); EOS % 1.5 % (0.0-3.0); HEMATOCRIT 37.6 % (42.0-52.0); HEMOGLOBIN 11.8 g/dl (13.5-17.5); LYMPH # 0.7 10^3/uL (1.5-5.0); MEAN CORPUSCULAR HEMOGLOBIN 25.8 pg (27.0-33.0); MEAN CORPUSCULAR HGB CONC 31.4 g/dl (32.0-36.5); MEAN CORPUSCULAR VOLUME 82.3 fl (80.0-96.0); MONO % 11.2 % (2.0-8.0); NEUTROPHILS # 14.2 10^3/uL (1.5-8.5); NEUTROPHILS % 80.7 % (36.0-66.0); PLATELET COUNT, AUTOMATED 176 10^3/uL (150-450); RED BLOOD COUNT 4.57 10^6/uL (4.30-6.10); WHITE BLOOD COUNT 17.6 10^3/uL (4.0-10.0)
[2023-04-18 06:34] LABS: CALCIUM LEVEL 7.7 MG/DL (8.3-10.6); CREATININE FOR GFR 2.19 MG/DL (0.70-1.30); GLOMERULAR FILTRATION RATE 30.9 (>35); POTASSIUM SERUM 4.1 MMOL/L (3.5-5.1)
[2023-04-19 05:15] VITALS: BP 141/68; TEMP 97.7; O2SAT 97
[2023-04-19 06:15] LABS: BASO # 0.1 10^3/uL (0.0-0.2); BASO % 0.4 % (0.0-1.0); EOS # 0.3 10^3/uL (0.0-0.5); EOS % 1.6 % (0.0-3.0); HEMATOCRIT 36.7 % (42.0-52.0); HEMOGLOBIN 11.8 g/dl (13.5-17.5); LYMPH # 0.7 10^3/uL (1.5-5.0); MEAN CORPUSCULAR HEMOGLOBIN 25.8 pg (27.0-33.0); MEAN CORPUSCULAR HGB CONC 32.2 g/dl (32.0-36.5); MEAN CORPUSCULAR VOLUME 80.1 fl (80.0-96.0); MONO % 10.8 % (2.0-8.0); NEUTROPHILS # 15.1 10^3/uL (1.5-8.5); PLATELET COUNT, AUTOMATED 191 10^3/uL (150-450); RED BLOOD COUNT 4.58 10^6/uL (4.30-6.10); WHITE BLOOD COUNT 18.6 10^3/uL (4.0-10.0)
[2023-04-19 06:37] LABS: CALCIUM LEVEL 7.7 MG/DL (8.3-10.6); CREATININE FOR GFR 2.14 MG/DL (0.70-1.30); GLOMERULAR FILTRATION RATE 31.7 (>35); POTASSIUM SERUM 3.9 MMOL/L (3.5-5.1)
[2023-04-19 06:38] LABS: FREE T4 1.35 NG/DL (0.89-1.76); THYROID STIMULATING HORMONE 0.166 uIU/ML (0.55-4.78)
[2023-04-19 07:32] LABS: TOTAL T3 51.5 NG/DL (60.0-181.0)
[2023-04-19 08:23] VITALS: BP 137/67
[2023-04-19 11:46] VITALS: BP 137/91
[2023-04-19 13:08] LABS: ALBUMIN 1.6 G/DL (3.2-5.2); BILIRUBIN,DIRECT 0.5 MG/DL (<0.4); BILIRUBIN,TOTAL 0.7 MG/DL (0.3-1.2); TOTAL PROTEIN 3.9 G/DL (5.7-8.2)
[2023-04-19 14:00] VITALS: BP 141/64; TEMP 97.7; O2SAT 92
[2023-04-19] MEDS ORDERED: LACTULOSE 20GM/30ML SYRUP UDC PO PRN (16:40)
[2023-04-19] MEDS ORDERED: MIRALAX *UNIT DOSE* 17GM PACKET PO PRN (16:40)
[2023-04-19] MEDS ORDERED: FLEET ENEMA PR PRN ×2 (16:40)
[2023-04-19] MEDS ORDERED: BISACODYL 10MG SUPP PR PRN (16:40)
[2023-04-19] MEDS: SENOKOT S TAB PO ONE (16:44)
[2023-04-19] MEDS: MIRALAX *UNIT DOSE* 17GM PACKET PO ONE (16:44)
[2023-04-19] MEDS: ONDANSETRON 4MG 2ML VIAL IV PRN (18:35)
[2023-04-19] MEDS: SENOKOT S TAB PO SCH (19:56)
[2023-04-19 22:00] VITALS: BP 138/66; TEMP 98.1; O2SAT 91
[2023-04-20 05:13] VITALS: BP 142/66; TEMP 98.2; O2SAT 92
[2023-04-20 06:27] LABS: BASO # 0.1 10^3/uL (0.0-0.2); BASO % 0.4 % (0.0-1.0); EOS # 0.3 10^3/uL (0.0-0.5); HEMATOCRIT 37.1 % (42.0-52.0); HEMOGLOBIN 11.9 g/dl (13.5-17.5); LYMPH # 0.8 10^3/uL (1.5-5.0); LYMPH % 4.7 % (24.0-44.0); MEAN CORPUSCULAR HEMOGLOBIN 25.8 pg (27.0-33.0); MEAN CORPUSCULAR HGB CONC 32.1 g/dl (32.0-36.5); MEAN CORPUSCULAR VOLUME 80.3 fl (80.0-96.0); MONO % 11.5 % (2.0-8.0); NEUTROPHILS # 13.7 10^3/uL (1.5-8.5); NEUTROPHILS % 79.1 % (36.0-66.0); PLATELET COUNT, AUTOMATED 176 10^3/uL (150-450); RED BLOOD COUNT 4.62 10^6/uL (4.30-6.10); WHITE BLOOD COUNT 17.3 10^3/uL (4.0-10.0)
[2023-04-20 06:49] LABS: ALBUMIN 1.7 G/DL (3.2-5.2); BILIRUBIN,DIRECT 0.6 MG/DL (<0.4); BILIRUBIN,TOTAL 0.9 MG/DL (0.3-1.2); CREATININE FOR GFR 2.18 MG/DL (0.70-1.30); GLOMERULAR FILTRATION RATE 31.1 (>35); POTASSIUM SERUM 4.2 MMOL/L (3.5-5.1); TOTAL PROTEIN 4.1 G/DL (5.7-8.2)
== END 2023-04-20 11:50 | disposition home health service (06) | DRG 698 ==
LOC: EDBD 15:04 → M ED 15:04 → M ED INP 18:07 → ENRESERV 19:46 → M PCU 20:57 → M MSPAV 04-15 13:07
PROVIDERS: ADMIT General Practice; ATTEND General Practice
DX: T83.518A Infection and inflammatory reaction due to other urinary catheter, initial encounter (principal); J18.9 Pneumonia, unspecified organism; R53.2 Functional quadriplegia; I13.0 Hypertensive heart and chronic kidney disease with heart failure and stage 1 through stage 4 chronic kidney disease, or unspecified chronic kidney disease; I50.32 Chronic diastolic (congestive) heart failure; J96.11 Chronic respiratory failure with hypoxia; E87.1 Hypo-osmolality and hyponatremia; I48.20 Chronic atrial fibrillation, unspecified; N17.9 Acute kidney failure, unspecified; J44.0 Chronic obstructive pulmonary disease with (acute) lower respiratory infection; E87.20 Acidosis, unspecified; I69.351 Hemiplegia and hemiparesis following cerebral infarction affecting right dominant side; K80.10 Calculus of gallbladder with chronic cholecystitis without obstruction; Y84.6 Urinary catheterization as the cause of abnormal reaction of the patient, or of later complication, without mention of misadventure at the time of the procedure; E78.5 Hyperlipidemia, unspecified; D63.8 Anemia in other chronic diseases classified elsewhere; G25.81 Restless legs syndrome; E11.22 Type 2 diabetes mellitus with diabetic chronic kidney disease; E86.0 Dehydration; N40.1 Benign prostatic hyperplasia with lower urinary tract symptoms; K21.9 Gastro-esophageal reflux disease without esophagitis; E87.5 Hyperkalemia; H91.93 Unspecified hearing loss, bilateral; N18.30 Chronic kidney disease, stage 3 unspecified; E05.20 Thyrotoxicosis with toxic multinodular goiter without thyrotoxic crisis or storm; R33.9 Retention of urine, unspecified; I95.89 Other hypotension; F01.50 Vascular dementia, unspecified severity, without behavioral disturbance, psychotic disturbance, mood disturbance, and anxiety; Z66 Do not resuscitate; F32.A Depression, unspecified; Z99.3 Dependence on wheelchair; Z87.891 Personal history of nicotine dependence; Z79.82 Long term (current) use of aspirin; Z79.01 Long term (current) use of anticoagulants; Z79.899 Other long term (current) drug therapy; Z99.81 Dependence on supplemental oxygen; Z88.0 Allergy status to penicillin; R62.7 Adult failure to thrive; Z74.01 Bed confinement status; Z91.198 Patient's noncompliance with other medical treatment and regimen for other reason